=== PATIENT | male | born 1995 | race American Indian/Alaskan Native ===

== ENCOUNTER 2017-02-08 04:07 | Emergency (ER) | payer MEDICAID ==
--- NOTE | 2017-02-08 04:56 | ED PDOC ---
HPI: Abdomen Time Seen by Provider: 02/08/17 04:31 Chief Complaint (Nursing): Abdominal Pain Chief Complaint (Provider): abominal pain History Per: Patient History/Exam Limitations: no limitations Outside of [place] travel?: No Associated Symptoms: denies: Fever, Chills, Nausea, Vomiting, Diarrhea, Loss Of Appetite, Back Pain, Chest Pain, Constipation, Urinary Symptoms Additional Complaint(s): 21yo M in ED for abdominal cramping x 1 week intermittent 1-2times daily located to LLQ RLQ pain described as cramping not made worse with eating, urination or BM. PT denies the fallowing: fever chills nausea vomiting rash foreign ravel. admits he is the only sick person in household. denies drug use. Past Medical History Reviewed: Historical Data, Nursing Documentation, Vital Signs Vital Signs: Last Vital Signs Temp 98.0 F 02/08/17 04:27 Pulse 92 H 02/08/17 04:27 Resp 18 02/08/17 04:27 BP 123/71 02/08/17 04:27 Pulse Ox 97 02/08/17 04:41 - Medical History PMH: Asthma (as a child) - Family History Family History: States: No Known Family Hx - Immunization History Hx Tetanus Toxoid Vaccination: No Hx Influenza Vaccination: No Hx Pneumococcal Vaccination: No - Home Medications Home Medications: Ambulatory Orders Medication Instructions Recorded Dicyclomine [Bentyl] 20 mg PO TID #30 tab 02/08/17 - Allergies Allergies/Adverse Reactions: Allergies Allergy/AdvReac Type Severity Reaction Status Date / Time No Known Allergies Allergy Verified 02/08/17 04:26 Review of Systems ROS Statement: Except As Marked, All Systems Reviewed And Found Negative Constitutional: Negative for: Fever, Chills Cardiovascular: Negative for: Chest Pain, Palpitations Gastrointestinal: Positive for: Abdominal Pain. Negative for: Nausea, Vomiting , Rectal Pain Genitourinary Male: Negative for: Dysuria, Frequency, Hematuria Musculoskeletal: Negative for: Neck Pain Physical Exam - Reviewed Nursing Documentation Reviewed: Yes Vital Signs Reviewed: Yes - Physical Exam Appears: Positive for: Well, Non-toxic, No Acute Distress Skin: Positive for: Normal Color, Warm, DRY Eye Exam: Positive for: EOMI, Normal appearance, PERRL ENT: Positive for: Normal ENT Inspection Neck: Positive for: Normal, Painless ROM Cardiovascular/Chest: Positive for: Regular Rate, Rhythm Respiratory: Positive for: CNT, Normal Breath Sounds Gastrointestinal/Abdominal: Positive for: Normal Exam, Bowel Sounds, Soft Back: Positive for: Normal Inspection Neurologic/Psych: Positive for: Alert, Oriented - ECG O2 Sat by Pulse Oximetry: 97 Medical Decision Making Medical Decision Making: PT at this time has no complaints. PT advised he should f.u with his PMD and referral to GI. pt was offered to have blood work but declined. and will eb given a rX for Bentyl for cramping. advised if with severe pain to return to ER. Disposition - Clinical Impression Clinical Impression: Abdominal pain - Patient ED Disposition Is Patient to be Admitted: No Counseled Patient/Family Regarding: Diagnosis, Need For Followup, Rx Given - Disposition Referrals: [facility] [Outside] Disposition: Routine/Home Disposition Time: 05:00 Condition: STABLE Prescriptions: Dicyclomine [Bentyl] 20 mg PO TID #30 tab Instructions: Gas and Bloating (ED), Abdominal Pain (ED) Forms: [employer] (Sudanese), [facility] ED School/Work Excuse
[2017-02-08 05:10] VITALS: BP 118/62; PULSE 76; RESP 16; TEMP 97.7; O2SAT 100
== END 2017-02-08 05:13 | disposition home or self-care (01) ==
LOC: H.ER 04:07
DX: R10.31 Right lower quadrant pain (principal)

== ENCOUNTER 2017-02-12 04:39 | Emergency (ER) | payer MEDICAID ==
[2017-02-12 04:48] VITALS: RESP 16; O2SAT 100
[2017-02-12] MEDS ORDERED: Amoxicillin-Clav 875-125 mg Tab PO STA (05:06)
--- NOTE | 2017-02-12 05:09 | ED PDOC ---
HPI: Dental Pain/Injury Time Seen by Provider: 02/12/17 05:06 Chief Complaint (Nursing): Fever Chief Complaint (Provider): toothache History Per: Patient History/Exam Limitations: no limitations Onset/Duration Of Symptoms: Days (1) Current Symptoms Are (Timing): Still Present Additional History Per: Patient Additional Complaint(s): 21 y/o male presents with left upper toothache x 1 day. Patient states he woke up and noticed the area where his wisdom tooth should be coming in was painful and swollen. States he took ibuprofen at 23:00 last night, then woke up this am with chills and vomited once. Denies headache, neck pain, difficulty speaking/swallowing, throat pain, ear pain, cough, congestion, abdominal pain. Past Medical History Reviewed: Historical Data, Nursing Documentation, Vital Signs Vital Signs: Last Vital Signs Temp 101.3 F H 02/12/17 04:41 Pulse 78 02/12/17 04:41 Resp 16 02/12/17 04:41 BP 121/58 L 02/12/17 04:41 Pulse Ox 100 02/12/17 04:41 - Medical History PMH: Asthma (as a child) Denies: Chronic Kidney Disease - Surgical History Surgical History: No Surg Hx - Family History Family History: States: No Known Family Hx - Living Arrangements Living Arrangements: With Family - Immunization History Hx Tetanus Toxoid Vaccination: No Hx Influenza Vaccination: No Hx Pneumococcal Vaccination: No - Home Medications Home Medications: Ambulatory Orders Medication Instructions Recorded Dicyclomine [Bentyl] 20 mg PO TID #30 tab 02/08/17 Amoxicillin/Clavulanate [Augmentin 1 tab PO BID #13 tab 02/12/17 875 MG-125 MG] Ibuprofen [Motrin Tab] 800 mg PO Q8 PRN #20 tab 02/12/17 - Allergies Allergies/Adverse Reactions: Allergies Allergy/AdvReac Type Severity Reaction Status Date / Time No Known Allergies Allergy Verified 02/08/17 04:26 Review of Systems ROS Statement: Except As Marked, All Systems Reviewed And Found Negative Constitutional: Positive for: Fever ENT: Positive for: Mouth Pain (left upper gum) Physical Exam - Reviewed Nursing Documentation Reviewed: Yes Vital Signs Reviewed: Yes - Physical Exam Appears: Positive for: Well, Non-toxic, No Acute Distress Head Exam: Positive for: ATRAUMATIC, NORMAL INSPECTION, NORMOCEPHALIC Skin: Positive for: Normal Color Eye Exam: Positive for: Normal appearance ENT: Positive for: TM Is/Are (clear b/l), Other (left upper gum area surrounding impacted wisdom tooth swollen, soft, tender to touch. ). Negative for: Pharyngeal Erythema, Tonsillar Exudate, Tonsillar Swelling Neck: Positive for: Normal, Painless ROM Cardiovascular/Chest: Positive for: Regular Rate, Rhythm Respiratory: Positive for: Normal Breath Sounds Gastrointestinal/Abdominal: Positive for: Normal Exam, Bowel Sounds, Soft. Negative for: Tenderness Back: Positive for: Normal Inspection Extremity: Positive for: Normal ROM Lymphatic: Positive for: Normal Exam Neurologic/Psych: Positive for: Alert, Oriented - ECG O2 Sat by Pulse Oximetry: 100 - Progress ED Course And Treament: Toradol IM, tylenol PO, Augmentin PO Patient educated on findings, advised dental follow up tomorrow. Mother states she has a dentist she will bring patient to. Rx Augmentin, ibuprofen provided. Return to ED for worsening/concerning symptoms. Disposition - Clinical Impression Clinical Impression: Dental abscess - Patient ED Disposition Is Patient to be Admitted: No Counseled Patient/Family Regarding: Diagnosis, Need For Followup, Rx Given - Disposition Referrals: Sim Parham MD [Primary Care Provider] - Disposition: Routine/Home Disposition Time: 06:09 Condition: IMPROVED Additional Instructions: Call Dentist this am to schedule appointment. Take medication as directed. Return to ED for worsening/concerning symptoms. Prescriptions: Amoxicillin/Clavulanate [Augmentin 875 MG-125 MG] 1 tab PO BID #13 tab Ibuprofen [Motrin Tab] 800 mg PO Q8 PRN #20 tab PRN Reason: Pain, Moderate (4-7) Instructions: Dental Abscess (ED) Forms: [facility] ED School/Work Excuse
[2017-02-12] MEDS ORDERED: Amoxicillin-Clav 875-125 mg Tab PO ONE (05:12)
[2017-02-12 06:16] VITALS: BP 119/71; PULSE 82; TEMP 100.1
== END 2017-02-12 06:17 | disposition home or self-care (01) ==
LOC: H.ER 04:39
DX: K04.7 Periapical abscess without sinus (principal)
CPT/HCPCS: 96372; 99282; J1885